=== PATIENT | female | born 1960 | race African-American/Black ===

== ENCOUNTER 2023-12-13 01:58 | Emergency (ER) | payer OTHER ==
[2023-12-13 02:15] VITALS: TEMP 98.8; BMI 28.4
[2023-12-13] MEDS ORDERED: ASPIRIN 81 MG CHEWABLE TABLETS ONE (02:38)
[2023-12-13] MEDS: ASPIRIN 81 MG CHEWABLE TABLETS PO ONE (02:42)
[2023-12-13 02:47] LABS: BASO % 1.4 % (0-2.0); EOS % 2.4 % (0-4.5); HEMATOCRIT 40.6 % (32.4-45.2); HEMOGLOBIN 13.6 GM/dL (10.7-15.3); LYMPH % 28.9 % (8-40); MCH 28.5 pg (25.7-33.7); MCHC 33.6 g/dl (32.0-36.0); MEAN CELL VOLUME 84.8 fl (80-96); MEAN PLT VOLUME 7.6 fl (7.5-11.1); MONO % 6.6 % (3.8-10.2); NEUT % 60.7 % (42.8-82.8); PLATELET COUNT 403 10^3/uL (134-434); RBC 4.79 M/mm3 (3.60-5.2); WHITE BLOOD COUNT 7.2 K/mm3 (4.0-10.0)
[2023-12-13 03:17] LABS: CHLORIDE 102 mmol/L (98-107); POTASSIUM 4.3 mmol/L (3.5-5.1); SODIUM 137 mmol/L (136-145)
[2023-12-13] MEDS ORDERED: HALOPERIDOL LACTATE 5 MG/ML ONE (03:17)
[2023-12-13 03:18] LABS: CALCIUM 10.1 mg/dL (8.5-10.1)
[2023-12-13 03:19] LABS: ALBUMIN 3.3 g/dl (3.4-5.0); ANION GAP 7 mmol/L (4-13); BLOOD UREA NITROGEN 11.6 mg/dL (7-18); CO2 28 mmol/L (21-32)
[2023-12-13] MEDS: HALOPERIDOL LACTATE 5 MG/ML IM ONE (03:21)
[2023-12-13 03:22] LABS: CREATININE 0.7 mg/dL (0.55-1.3); SGOT/AST 14 U/L (15-37); SGPT/ALT 22 U/L (13-61)
[2023-12-13 03:23] LABS: BILIRUBIN,TOTAL 0.4 mg/dL (0.2-1); TOT PROT 7.1 g/dl (6.4-8.2)
[2023-12-13 03:28] LABS: ALK PHOS 153 U/L (45-117)
[2023-12-13 03:40] LABS: GLUCOSE,RANDOM 487 mg/dL (74-106)
[2023-12-13] MEDS: LACTATED RINGERS SOLUTION 1000 ML INFUS.BAG IV ONE (04:10)
[2023-12-13] MEDS ORDERED: CLOPIDOGREL BISULFATE 300 MG TABLET ONE (04:15)
[2023-12-13] MEDS: CLOPIDOGREL BISULFATE 300 MG TABLET PO ONE (04:24)
[2023-12-13 05:37] VITALS: BP 97/57; PULSE 90; RESP 14
== END 2023-12-13 05:55 | disposition short-term general hospital (02) ==
LOC: JER 01:58
PROC: 3E023GC Introduction of Other Therapeutic Substance into Muscle, Percutaneous Approach (ICD-10-PCS; principal; 2023-12-13)
DX: R07.2 Precordial pain (principal); R00.2 Palpitations; R06.02 Shortness of breath; R11.10 Vomiting, unspecified; R00.0 Tachycardia, unspecified; R94.31 Abnormal electrocardiogram [ECG] [EKG]; Z20.822 Contact with and (suspected) exposure to COVID-19
CPT/HCPCS: 0241U-QW; 36415; 70450-TC; 71045-TC-FY; 80053; 84484; 85025; 86850; 86900; 86901; 93005; 93010; 96372; 99285-25